=== PATIENT | male | born 1995 | race Two or more races ===

== ENCOUNTER 2020-05-15 14:46 | Outpatient (CLI) | payer OTHER | END 2020-05-15 14:59 | disposition home or self-care (01) | LOC: RAD 14:46 | PROVIDERS: ATTEND General Practice | DX: Z00.01 Encounter for general adult medical examination with abnormal findings (principal); Z68.27 Body mass index [BMI] 27.0-27.9, adult; Z23 Encounter for immunization; Z11.3 Encounter for screening for infections with a predominantly sexual mode of transmission; Z11.4 Encounter for screening for human immunodeficiency virus [HIV]; Z12.11 Encounter for screening for malignant neoplasm of colon; Z13.0 Encounter for screening for diseases of the blood and blood-forming organs and certain disorders involving the immune mechanism; Z13.220 Encounter for screening for lipoid disorders; Z13.1 Encounter for screening for diabetes mellitus; Z13.228 Encounter for screening for other metabolic disorders; M54.5 Low back pain; M54.2 Cervicalgia; Z00.00 Encounter for general adult medical examination without abnormal findings; R07.89 Other chest pain ==

== ENCOUNTER 2021-04-24 11:19 | Outpatient (CLI) | payer OTHER | END 2021-04-24 11:27 | disposition home or self-care (01) | LOC: RAD 11:19 | PROVIDERS: ATTEND General Practice | DX: M79.671 Pain in right foot (principal); M77.31 Calcaneal spur, right foot ==